=== PATIENT | male | born 1970 | race Caucasian/White ===

== ENCOUNTER 2019-03-12 08:06 | Emergency (ER) | payer OTHER ==
[~2019-03-12] VITALS: Ht 188 cm; Wt 108.0 kg
[2019-03-12] MEDS ORDERED: HYDROCODONE/ACETAMINOPHEN 5/325MG TABLET PO STA (09:52)
[2019-03-12] MEDS ORDERED: CYCLOBENZAPRINE 10MG TABLET PO ONE (10:00)
[2019-03-12 10:14] VITALS: BP 133/87
== END 2019-03-12 10:14 | disposition home or self-care (01) ==
LOC: ER 08:06
DX: S39.012A Strain of muscle, fascia and tendon of lower back, initial encounter (principal); X50.0XXA Overexertion from strenuous movement or load, initial encounter; Y93.89 Activity, other specified; Y92.9 Unspecified place or not applicable; Z88.8 Allergy status to other drugs, medicaments and biological substances
CPT/HCPCS: 99283